=== PATIENT | female | born 1960 | race Caucasian/White ===

== ENCOUNTER 2024-06-17 11:31 | Emergency (ER) | payer BC, SELFPAY ==
[2024-06-17 11:36] VITALS: BP 127/77
[2024-06-17 11:46] VITALS: BP 133/87
[2024-06-17 11:51] LABS: % Basophils 0.6 % (0-2); % Eosinophils 4.4 % (0-6); % Immature Granulocytes 0.6 % (0-0.5); % Monocytes 11.6 % (1.7-9.3); % Neutrophils 63.8 % (42.2-75.2); Absolute Eosinophils 0.2 10^3/uL (0-0.7); Absolute Monocytes 0.6 10^3/uL (0.1-0.6); Absolute Neutrophils 3.4 10^3/uL (1.4-6.5); Hematocrit 41.2 % (37.0-47.0); Hemoglobin 13.9 g/dL (12.0-16.0); Mean Corp Hgb Conc. 33.7 g/dL (33.0-37.0); Mean Corpuscular Hgb 30.9 pg (27.0-31.0); Mean Corpuscular Volume 91.6 fL (81.0-99.0); Mean Platelet Volume 9.8 fL (7.4-10.4); Nucleated Red Blood Cells % 0 %; Platelet Count 223 10^3/uL (130-400); Red Cell Dist. Width 13.1 % (11.5-14.5); White Blood Cell Count 5.3 10^3/uL (4.8-10.8)
[2024-06-17 12:00] VITALS: BP 147/68
--- NOTE | 2024-06-17 12:07 | ED.GENMED ---
History of Present Illness
General
Chief Complaint: Abdominal Pain
Source: patient
Time Seen by Provider: 06/17/24 11:58
History of Present Illness
History of Present Illness:
63yoF with a history of hyperlipidemia, hypothyroidism, kidney stones, and diverticulosis presenting via EMS for evaluation of abdominal pain. Symptoms initially began 4 days ago with lower abdominal discomfort. She thought she had some
indigestion. The pain resolved but recurred yesterday evening. Pain was initially mild. She had a bowel movement around 9:30 AM this morning. After this, her pain acutely worsened and is now severe. She reports that her pain is throughout her
lower abdomen into her bilateral lower back/flank region. She has a history of kidney stone and states her current symptoms feel similar. She took 2 Tramadol prior to arrival and pain has improved. She denies any fevers, chills, nausea, vomiting,
diarrhea, constipation, dysuria, hematuria, chest pain, shortness of breath. She required a surgery for her previous kidney stone. No other abdominal surgeries.
Past History
Past History
ED Past Medical History: Hypothyroidism and Other (Diverticulitis)
Social History
Tobacco: Non-smoker
Alcohol: None
Drug: None
Personal:
Living: with family
Employment: Employed
Family History
Family History: Unable to obtain (Noncontributory)
Phy Exam
Physical Exam
Physical Exam:
Appears uncomfortable, non-toxic
General Physical Exam
General Presentation: well appearing and no apparent distress
General age: appears stated age
General Skin: warm and dry
General Habitus: normal
General Mental: alert
ENT Exam
ENT Exam: normocephalic
Cardiovascular Exam
Cardiovascular Exam: regular rate/rhythm and no murmur
Pulmonary Exam
Pulmonary Exam: lungs clear, no respiratory distress, no crackles and no wheezing
Gastrointestinal Exam
Gastrointestinal Exam: non tender, soft, non distended and no cva tenderness
Darren Coma Scale
Eye Opening: Spontaneous
Verbal Response: Oriented
Motor Response: Obeys Commands
GCS Total Score: 15
Musculoskeletal Exam
Musculoskeletal Exam: other (+Tenderness in bilateral paraspinal musculature in lumbar region.)
Skin Exam
Skin Exam: normal color and warm/dry
Psychiatric Exam
Psychiatric Exam: normal mood/affect
Course
Orders/Labs/Results
Orders:
Orders
06/17/24 11:41
Complete Blood Count/With Diff Urgent
Comprehensive Metabolic Panel Urgent
06/17/24 12:07
CT Abd/pelvis W Iv Cont Urgent
Comment:
Reason For Exam: Lower abd pain/bilateral flank pain
0.9% Sodium Chloride 500 ml [Nss] 500 ml IV BOLUS
HYDROmorphone [Dilaudid] 1 mg IV NOW STA
Ketorolac [Toradol] 15 mg IV NOW STA
06/17/24 14:54
Urine Culture Reflexed from UA [Urinalysis Reflex To Culture] Urgent
Date Specimen was Collected: 06/17/24
Time Specimen was Collected: 11:41
Urine Microscopic Reflex Cult Urgent
Abnormal Lab Results
06/17/24 06/17/24
11:41 14:54
Absolute Lymphs (auto) 1.0 L 10^3/uL
(1.2-3.4)
Immature Gran % 0.6 H %
(0-0.5)
Lymphocytes % 19.0 L %
(20.5-51.1)
Monocytes % 11.6 H %
(1.7-9.3)
Glucose 105 H mg/dl
(70-99)
ALT 38 H U/L
(0-35)
Leukocyte Esterase Rfl Trace A
(Negative)
06/17/24 11:41
06/17/24 11:41
Vital Signs
Initial and Last Documented VS:
Initial Vital Signs
Temp Pulse Resp Pulse Ox
97.7 F 71 16 99
06/17/24 11:35 06/17/24 11:35 06/17/24 11:35 06/17/24 11:35
Last Documented Vital Signs
Temp Pulse Resp BP Pulse Ox
97.7 F 67 19 147/68 95
06/17/24 11:35 06/17/24 15:30 06/17/24 14:15 06/17/24 12:00 06/17/24 15:30
MDM/Problems Addressed
Differential Diagnosis Includes:
63yoF here with lower abd pain and back pain. Acutely worsened this morning after having a bowel movement. Hx of kidney stones. VSS. She appears uncomfortable but is non-toxic. No reproducible abdominal tenderness on exam although she does have
lumbar tenderness. Differential diagnosis includes but is not limited to: kidney stone, diverticulitis, appendicitis, musculoskeletal, nonspecific abdominal pain
Initial ED plan: Check CBC, CMP, UA, and CT abdomen. IV Dilaudid, Toradol, and fluid bolus for symptoms.
*Critical Care Note
Total Time (30-74mins, 75-104mins- exclusive of procedures): Not Applicable
Update Note
Update Note:
Labs overall unremarkable including normal white count, lipase, renal function, LFTs. UA bland without signs of infection. CT abdomen is negative for acute findings. Specifically, there are no kidney stones or evidence of diverticulitis on imaging.
Patient feeling improved on reassessment. She is stable for discharge. Unclear etiology of pain. Advised f/u with PCP and ED return precautions discussed. She expressed understanding and is agreeable to plan. She was discharged in stable condition.
ED Attending Note
-
Portions of this chart may have been created with voice recognition software.� Occasional wrong word or��sound alike� substitutions may have occurred due to the inherent limitations of voice recognition software.
Discharge Plan
Departure
Patient Disposition: Home (Routine Discharge)
Date of Disposition: 06/17/24
Time of Disposition: 15:37
Patient with high blood pressure during this ER visit?: Yes
Discharge Problem:
Nonspecific abdominal pain
Instructions: Abdominal Pain
Prescriptions:
No Action
[id number]-vit K-lut [Centrum Silver Women] 1 EACH tablet
1 ea PO DAILY
metronidazole 500 MG tablet
500 mg PO TID Qty: 30 0RF
levofloxacin [Levaquin] 750 MG tablet
750 mg PO DAILY Qty: 10 0RF
doxycycline hyclate 100 mg capsule
100 mg PO BID Qty: 10 0RF
Referrals:
aKli Gregory MD [Family Provider] -
Activity Restrictions/Additional Instructions:
Take Tylenol 650mg every 6 hours as needed for pain. Apply heat to affected area.
Please call your family doctor tomorrow to schedule a follow-up appointment. Return to the ER with any new or worsening symptoms.
Interventions
Interventions:
*Risk Screen - Suicide Last Done: 06/17/24 11:35
*General Assessment Last Done: 06/17/24 11:35
*Neglect/Abuse Screening Last Done: 06/17/24 11:35
*ED COVID-19 Vaccine History Last Done: 06/17/24 11:35
*Nursing Disposition Last Done: 06/17/24 16:13
EY-Abnlce-Uidfxsntbh Assessment Last Done: 06/17/24 11:43
Discharge Date and Time
Discharge Date/Time: 06/17/24 16:14
Print Language: STATELESS
[2024-06-17] MEDS: TORADOL 15 MG IV (12:11)
[2024-06-17] MEDS: NSS 500 IV (12:11)
[2024-06-17] MEDS: DILAUDID 1 MG IV (12:11)
[2024-06-17 12:22] LABS: ALT (SGPT) 38 U/L (0-35); AST (SGOT) 33 U/L (14-36); Albumin 4.6 g/dl (3.5-5.0); Alkaline Phosphatase 87 U/L (38-126); Blood Urea Nitrogen 15 mg/dl (7-17); Calcium 9.9 mg/dl (8.4-10.2); Carbon Dioxide 26 mmol/L (22-30); Chloride 103 mmol/L (98-107); Glucose 105 mg/dl (70-99); Potassium 4.9 mmol/L (3.5-5.1); Sodium 141 mmol/L (135-145); Total Bilirubin 0.5 mg/dl (0.2-1.3); eGFR > 60.00
[2024-06-17 15:19] LABS: Urine Albumin Trace (Neg - Trace); Urine Bilirubin Negative (Negative); Urine Character Clear (Clear); Urine Color Yellow; Urine Glucose Negative (Negative); Urine Ketone Negative (Negative); Urine Leukocyte Trace (Negative); Urine Nitrite Negative (Negative); Urine Occult Blood Negative (Negative); Urine Urobilinogen Negative (Neg - 1+)
== END 2024-06-17 16:14 | disposition home or self-care (01) ==
LOC: EMR 11:31
PROVIDERS: Physician Assistant Medical; EMERGENCY PHYSICIAN Student in an Organized Health Care Education/Training Program; FAMILY PHYSICIAN Family Medicine
DX: R10.30 Lower abdominal pain, unspecified (principal); M54.50 Low back pain, unspecified; E03.9 Hypothyroidism, unspecified; E78.5 Hyperlipidemia, unspecified; Z87.442 Personal history of urinary calculi
CPT/HCPCS: 96374; 96375; 96361; 99284; 74177; 80053; 81003; 81015; 85025; Q9967

== ENCOUNTER → 2024-09-10 14:38 | Outpatient (REF) | payer BC, SELFPAY | LOC: WDC 14:38 | PROVIDERS: ATTENDING PHYSICIAN Nurse Practitioner Family | DX: Z78.0 Asymptomatic menopausal state (principal); Z12.31 Encounter for screening mammogram for malignant neoplasm of breast | CPT/HCPCS: 77063; 77067; 77080 ==

== ENCOUNTER → 2024-10-18 11:14 | Outpatient (REF) | payer BC, SELFPAY | LOC: RAD 11:14 | PROVIDERS: ATTENDING PHYSICIAN Nurse Practitioner Family; FAMILY PHYSICIAN Family Medicine | DX: R10.2 Pelvic and perineal pain (principal) | CPT/HCPCS: 76856 ==